=== PATIENT | male | born 1960 | race Hispanic/Latino ===

== ENCOUNTER 2017-05-15 10:04 | Emergency (ER) | payer MEDICAID ==
[2017-05-15 10:10] VITALS: BMI 31.4
[2017-05-15] MEDS ORDERED: Sodium Chloride 0.9% 1,000 ML IV STA (10:12)
--- NOTE | 2017-05-15 10:22 | ED PDOC ---
Arrival/HPI - General Time Seen by Provider: 05/15/17 10:05 Historian: Patient, EMS - History of Present Illness Narrative History of Present Illness (Text): 05/15/17 10:13 56 y/o male, pmh including htn/cad/seizure? with stents, psychiatric history including anxiety/depression/drug abuse with the percocet and xanax with alcohol abuse, nkda, FS 151, GCS 15, bib [facility] ambulance which he was found on the ground outside the gas station in the [place] prior to the ambulance arrival about 45 minutes ago. Pt. was found by the bystanders which they noticed him on the ground and the ambulance was call, EMS found the patient has pinpoint pupils, gave 2 doses of the narcan as nasal spray with no relief but then gave additional 3 IV narcan which the patient responded, found confused initially and now at the baseline with aox3. Pt. stated that he doesn't remember what happened and why he is here at the ER. Pt. stated that he feels perfectly. Pt. has no chest pain or palpitation, no night sweat, no rash, no numbness or tingling, no night sweat, no other medical or psychological complaints. Pt. has no homicidal or suicidal ideation, no auditory or visual hallucination. Past Medical History - Provider Review Nursing Documentation Reviewed: Yes - Cardiac Hx Hypertension: Yes - Pulmonary Hx Tuberculosis: No - Neurological Hx Seizures: No - HEENT Hx HEENT Disorder: No - Renal Hx Renal Disorder: No - Endocrine/Metabolic Hx Endocrine Disorders: No - Hematological/Oncological Hx Cancer: No - Integumentary Hx Dermatological Disorder: No - Musculoskeletal/Rheumatological Hx Falls: No - Gastrointestinal Hx Gastrointestinal Disorders: No - Genitourinary/Gynecological Hx Sexually Transmitted Diseases: No - Psychiatric Hx Depression: Yes Hx Substance Use: Yes (oxycodone, percocet, xanax) - Surgical History Hx Coronary Stent: Yes - Anesthesia Hx Anesthesia: Yes Hx Anesthesia Reactions: No Hx Malignant Hyperthermia: No Family/Social History - Physician Review Nursing Documentation Reviewed: Yes Family/Social History: Unknown Family HX Smoking Status: Light Smoker < 10 Cigarettes Daily Hx Alcohol Use: Yes (beer) Hx Substance Use: Yes (oxycodone, percocet, xanax) Allergies/Home Meds Allergies/Adverse Reactions: Allergies No Known Allergies Allergy (Verified 10/23/15 14:43) Review of Systems - Review of Systems Constitutional: absent: Fatigue, Weight Change Eyes: absent: Vision Changes ENT: absent: Hearing Changes Respiratory: absent: SOB, Cough, Sputum Cardiovascular: absent: Chest Pain Gastrointestinal: absent: Abdominal Pain, Nausea, Vomiting Musculoskeletal: absent: Arthralgias, Back Pain Skin: absent: Rash, Pruritis Neurological: absent: Headache, Dizziness, Focal Weakness, Gait Changes, Speech Changes, Facial Droop, Disequilibrium Physical Exam Vital Signs Reviewed: Yes Vital Signs Temp Pulse Resp BP Pulse Ox 05/15/17 12:38 67 18 155/84 H 97 05/15/17 10:04 97.9 F 76 18 148/85 97 Temperature: Afebrile Blood Pressure: Normal Pulse: Regular Respiratory Rate: Normal Appearance: Positive for: Well-Appearing, Non-Toxic, Comfortable Pain Distress: None Mental Status: Positive for: Alert and Oriented X 3 Finger Stick Blood Glucose: 151 - Systems Exam Head: Present: Atraumatic, Normocephalic. No: Tenderness, Contusion, Swelling, Ecchymosis, Abrasion, Laceration, Other Pupils: Present: PERRL Extroacular Muscles: Present: EOMI. No: Gaze Palsy, Entrapment Conjunctiva: Present: Normal Mouth: Present: Moist Mucous Membranes Neck: Present: Normal Range of Motion, Trachea Midline. No: Meningeal Signs, MIDLINE TENDERNESS, Paraspinal Tenderness, Lymphadenopathy Respiratory/Chest: Present: Clear to Auscultation, Good Air Exchange. No: Respiratory Distress, Accessory Muscle Use, Wheezes, Decreased Breath Sounds, Rales, Retracting, Rhonchi, Tachypneic Cardiovascular: Present: Regular Rate and Rhythm, Normal S1, S2, Peripheal Pulses Present. No: Murmurs, Tachycardic Abdomen: Present: Normal Bowel Sounds. No: Tenderness, Distention, Peritoneal Signs, Rebound, Guarding Back: Present: Normal Inspection Upper Extremity: Present: Normal Inspection, Normal ROM, NORMAL PULSES, Capillary Refill < 2s. No: Cyanosis, Edema, Swelling, Deformity Lower Extremity: Present: Normal Inspection, NORMAL PULSES, Normal ROM, Capillary Refill < 2 s. No: Edema, Tenderness, Swelling, Deformity Neurological: Present: GCS=15, CN II-XII Intact, Speech Normal, Motor Func Grossly Intact, Gait Normal, Memory Normal Skin: Present: Warm, Dry, Normal Color. No: Rashes Psychiatric: Present: Alert, Oriented x 3, Normal Insight, Normal Concentration Medical Decision Making ED Course and Treatment: 05/15/17 10:24 -labs/ua/uds/alcohol/magnesium level -CT head -CXR -EKG -Pelletising Extruder Operator -IVF -Observe and reassess 05/15/17 12:52 -Pt. is currently fully alert and oriented x 3, no focal neurological deficits, walking with normal gait and posture. -EKG: ESR @ 82 BPM, no ST elevation or depression, no T wave inversion -CT Head: no acute findings -Chest xray: rt. lower lobe pneumonia which the patient admits coughing x 3 days with elevation of wbc. IV rocephine and azithromycin ordered. Based on the curb 65, pt. has low risk and stable for the outpatient follow up. -Labs: no acute finding except and wbc 12.4 -Alcohol level within normal limit -UA show no UTI -UDS show +cocaine/benzo/opiod -Pt. is non-toxic -I explained to the patient that he should avoid all gym/exercises while taking this levaquin medication as it can produces achilles tendon rupture and he agreed to accept the risk and stop the gym/exercise -Discharge home with levaquin, promethazine dm, stay hydrated, bed rest, avoid all gym/exercises while taking this levaquin medication as it can produces achilles tendon rupture follow up with your own pmd within 2 days, avoid intoxicated and drug abuse, return to the ER for any new or worsening signs or symptoms. - Lab Interpretations Lab Results: 05/15/17 10:15 05/15/17 10:15 Lab Results 05/15/17 12:10: Urine Opiates Screen Positive H, Urine Methadone Screen Negative , Ur Barbiturates Screen Negative, Ur Phencyclidine Scrn Negative, Ur Amphetamines Screen Negative, U Benzodiazepines Scrn Positive H, U Oth Cocaine Metabols Positive H, U Cannabinoids Screen Negative 05/15/17 12:10: Urine Color Yellow, Urine Appearance Clear, Urine pH 6.0, Ur Specific [place] >= 1.030, Urine Protein Trace H, Urine Glucose (UA) Negative, Urine Ketones Negative, Urine Blood Small H, Urine Nitrate Negative, Urine Bilirubin Negative, Urine Urobilinogen 0.2, Ur Leukocyte Esterase Negative, Urine RBC 5 - 10, Urine WBC 0 - 2, Ur Epithelial Cells None, Urine Bacteria Few 05/15/17 10:15: Alcohol, Quantitative < 10 05/15/17 10:15: Sodium 140, Potassium 4.3, Chloride 100, Carbon Dioxide 30, Anion Gap 14, BUN 16, Creatinine 1.2, Est GFR ( Amer) > 60, Est GFR (Non- Af Amer) > 60, Random Glucose 186 H, Calcium 8.9, Magnesium 1.9, Total Bilirubin 0.6, AST 44, ALT 79 H, Alkaline Phosphatase 75, Total Creatine Kinase 111, Total Protein 7.7, Albumin 4.4, Globulin 3.3, Albumin/Globulin Ratio 1.3 05/15/17 10:15: WBC 12.4 H D, RBC 4.88, Hgb 15.5, Hct 46.7, MCV 95.7, MCH 31.8, MCHC 33.2, RDW 13.9, Plt Count 215, MPV 11.2 H, Gran % 73.0 H, Lymph % (Auto) 18.0 L, Pe[place] % (Auto) 6.3 H, Eos % (Auto) 2.2, Baso % (Auto) 0.5, Gran # 9.08 H , Lymph # 2.2, Peach # 0.8 H, Eos # 0.3, Baso # 0.06 I have reviewed the lab results: Yes Interpretation: Abnormal lab values (UDS show +cocaine/benzo/opiod and wbc 12.4) - RAD Interpretation Radiology Orders: 05/15/17 10:12 HEAD W/O CONTRAST [CT] Stat CHEST PORTABLE [RAD] Stat CT HEAD WITHOUT CONTRAST. HISTORY: found unconscious on the ground COMPARISON: None available. TECHNIQUE: Axial computed tomography images were obtained through the head/brain without intravenous contrast. Radiation dose: Total exam DLP = 858.87 mGy-cm. This CT exam was performed using one or more of the following dose reduction techniques: Automated exposure control, adjustment of the mA and/or kV according to patient size, and/or use of iterative reconstruction technique. FINDINGS: HEMORRHAGE: No intracranial hemorrhage. BRAIN: No mass effect or edema. No atrophy or chronic microvascular ischemic changes. VENTRICLES: Unremarkable. No hydrocephalus. CALVARIUM: Unremarkable. PARANASAL SINUSES: Unremarkable as visualized. No significant inflammatory changes. MASTOID AIR CELLS: Unremarkable as visualized. No inflammatory changes. OTHER FINDINGS: None. IMPRESSION: No evidence of acute intracranial hemorrhage territorial infarct mass effect or midline shift. Chest x-ray: HISTORY: medical clearance COMPARISON: No prior. FINDINGS: LUNGS: Heterogeneous opacity at the right lower lobe may represent atelectasis or less likely pneumonia. . PLEURA: No significant pleural effusion identified, no pneumothorax apparent. CARDIOVASCULAR: Normal. OSSEOUS STRUCTURES: No significant abnormalities. VISUALIZED UPPER ABDOMEN: Normal. OTHER FINDINGS: None. IMPRESSION: Heterogeneous opacity at the right lower lobe may represent atelectasis or less likely pneumonia. Otherwise no evidence of acute pathology. Quantitative Analyst Developer: Radiologist - EKG Interpretation EKG Interpretation (Text): 05/15/17 11:20 -EKG: NSR @ 82 BPM, no ST elevation or depression, no T wave inversion Interpreted by ED Physician: Yes Type: 12 lead EKG - Medication Orders Current Medication Orders: Azithromycin (Zithromax 500mg In Ns) 500 mg in 250 mls @ 167 mls/hr IVPB STAT STA PRN Reason: Protocol Stop: 05/15/17 13:35 Discontinued Medications Sodium Chloride (Sodium Chloride 0.9%) 1,000 mls @ 999 mls/hr IV .Q1H1M STA Stop: 05/15/17 11:12 Last Admin: 05/15/17 10:38 Dose: 999 mls/hr eMAR Start Stop Document 05/15/17 10:38 DUYO (Rec: 05/15/17 10:38 EWO [id number]) Intravenous Solution Start Date 05/15/17 Start Time 10:38 End Date 05/15/17 End time 11:38 Total Infusion Time 60 Ceftriaxone Sodium (Rocephin 1 Gram Ivpb) 1 gm in 100 mls @ 200 mls/hr IVPB STAT STA PRN Reason: Protocol Stop: 05/15/17 12:35 Last Admin: 05/15/17 12:19 Dose: 200 mls/hr eMAR Start Stop Document 05/15/17 12:19 CNR (Rec: 05/15/17 12:19 CNR [id number]) Intravenous Solution Start Date 05/15/17 Start Time 12:19 - PA / FLANGING MACHINE OPERATOR / Resident Statement MD/ has reviewed & agrees with the documentation as recorded. Disposition/Present on Arrival - Present on Arrival Any Indicators Present on Arrival: No History of DVT/PE: No History of Uncontrolled Diabetes: No Urinary Catheter: No History of Decub. Ulcer: No History Surgical Site Infection Following: None - Disposition Have Diagnosis and Disposition been Completed?: Yes Diagnosis: Pneumonia, Drug abuse Disposition: HOME/ ROUTINE Disposition Time: 12:57 Patient Plan: Discharge Patient Problems: Current Active Problems Problem Status Onset Pneumonia Acute Condition: IMPROVED Additional Instructions: -Discharge home with levaquin, promethazine dm, stay hydrated, bed rest, avoid all gym/exercises while taking this levaquin medication as it can produces achilles tendon rupture follow up with your own pmd within 2 days, avoid intoxicated and drug abuse, return to the ER for any new or worsening signs or symptoms. Prescriptions: Levofloxacin [Levaquin] 750 mg PO DAILY #5 tablet Promethazine DM [Phenergan DM Syrup] 5 ml PO QID PRN #250 ml PRN Reason: Other Referrals: Julio CONDON,Yazan Rousseau MD [Primary Care Provider] - Follow up with primary [facility] [Outside] - Follow up with primary Forms: WORK NOTE
[2017-05-15 10:31] LABS: BASO # 0.06 K/mm3 (0.0-2.0); BASO % 0.5 % (0.0-3.0); EOS # 0.3 (0.0-0.7); EOS % 2.2 % (1.5-5.0); GRAN # 9.08 (1.4-6.5); HEMATOCRIT 46.7 % (42.0-52.0); LYMPH # 2.2 (1.2-3.4); MEAN CELL VOLUME 95.7 fl (80.0-105.0); MEAN CORPUSCULAR HEMOGLOBIN 31.8 pg (25.0-35.0); MEAN CORPUSCULAR HGB CONC 33.2 g/dl (31.0-37.0); MEAN PLATELET VOLUME 11.2 fl (7.0-11.0); MONO # 0.8 (0.1-0.6); MONO % 6.3 % (1.0-6.0); RED CELL DISTRIBUTION WIDTH 13.9 % (11.5-14.5); WHITE BLOOD COUNT 12.4 10^3/ul (4.5-11.0)
[2017-05-15 10:32] VITALS: TEMP 97.9
[2017-05-15 10:42] LABS: ALB/GLOB RATIO 1.3 (1.1-1.8); ALKALINE PHOSPHATASE 75 U/L (38-126); ALT/SGPT 79 U/L (7-56); AST/SGOT 44 U/L (17-59); BILIRUBIN,TOTAL 0.6 mg/dL (0.2-1.3); BLOOD UREA NITROGEN 16 mg/dL (7-21); CALCIUM 8.9 mg/dL (8.4-10.5); CARBON DIOXIDE 30 mmol/L (21-33); CHLORIDE 100 mmol/L (98-107); GFR AFRICAN-AMERICAN > 60; GLUCOSE,RANDOM 186 mg/dL (70-110); MAGNESIUM 1.9 mg/dL (1.7-2.2); POTASSIUM 4.3 mmol/L (3.6-5.0); SODIUM 140 mmol/L (132-148); TOTAL PROTEIN 7.7 g/dL (5.8-8.3)
--- NOTE | 2017-05-15 11:08 | CT ---
PROCEDURE: CT HEAD WITHOUT CONTRAST. HISTORY: found unconscious on the ground COMPARISON: None available. TECHNIQUE: Axial computed tomography images were obtained through the head/brain without intravenous contrast. Radiation dose: Total exam DLP = 858.87 mGy-cm. This CT exam was performed using one or more of the following dose reduction techniques: Automated exposure control, adjustment of the mA and/or kV according to patient size, and/or use of iterative reconstruction technique. FINDINGS: HEMORRHAGE: No intracranial hemorrhage. BRAIN: No mass effect or edema. No atrophy or chronic microvascular ischemic changes. VENTRICLES: Unremarkable. No hydrocephalus. CALVARIUM: Unremarkable. PARANASAL SINUSES: Unremarkable as visualized. No significant inflammatory changes. MASTOID AIR CELLS: Unremarkable as visualized. No inflammatory changes. OTHER FINDINGS: None. IMPRESSION: No evidence of acute intracranial hemorrhage territorial infarct mass effect or midline shift.
--- NOTE | 2017-05-15 11:27 | RAD ---
HISTORY: medical clearance COMPARISON: No prior. FINDINGS: LUNGS: Heterogeneous opacity at the right lower lobe may represent atelectasis or less likely pneumonia. . PLEURA: No significant pleural effusion identified, no pneumothorax apparent. CARDIOVASCULAR: Normal. OSSEOUS STRUCTURES: No significant abnormalities. VISUALIZED UPPER ABDOMEN: Normal. OTHER FINDINGS: None. IMPRESSION: Heterogeneous opacity at the right lower lobe may represent atelectasis or less likely pneumonia. Otherwise no evidence of acute pathology.
--- NOTE | 2017-05-15 12:00 | CARD ---
APPROVED REPORT EKG Measurement Heart [id number] <Conclusion> Normal sinus rhythm Normal ECG
[2017-05-15] MEDS ORDERED: Azithromycin 500MG/NS 250ml 500 MG/250 ML BAG IVPB STA (12:06)
[2017-05-15] MEDS ORDERED: cefTRIAXone 1 gm 1 GM/100 ML BAG IVPB STA (12:06)
[2017-05-15 12:29] LABS: URINE BILIRUBIN NEGATIVE (NEGATIVE); URINE BLOOD SMALL (NEGATIVE); URINE GLUCOSE (UA) NEGATIVE (NEGATIVE); URINE KETONE NEGATIVE (NEGATIVE); URINE LEUKOCYTE ESTERASE NEGATIVE Leu/uL (NEGATIVE); URINE PROTEIN TRACE mg/dL (<30 mg/dL); URINE UROBILINOGEN 0.2 E.U./dL (<1 E.U./dL)
[2017-05-15 12:31] LABS: URINE APPEARANCE CLEAR (CLEAR); URINE COLOR YELLOW (YELLOW)
[2017-05-15 12:34] LABS: URINE BACTERIA FEW (NEG); URINE WBC 0 - 2 /hpf (0-6)
[2017-05-15 12:39] VITALS: PULSE 67
[2017-05-15 14:26] VITALS: BP 158/97; RESP 17; O2SAT 100
== END 2017-05-15 15:40 | disposition home or self-care (01) ==
LOC: ED 10:04
DX: J18.9 Pneumonia, unspecified organism (principal); F19.10 Other psychoactive substance abuse, uncomplicated; F17.210 Nicotine dependence, cigarettes, uncomplicated; I10 Essential (primary) hypertension
CPT/HCPCS: 70450; 71010; 80053; 80320; 80324; 80345; 80346; 80349; 80353; 80358; 80361; 81001; 82550; 83735; 83992; 85025; 93005; 96361; 96365; 96375; 99285; J0456; J0696; J7040

== ENCOUNTER 2017-05-22 05:43 | Emergency (ER) | payer MEDICAID ==
[2017-05-22 05:44] VITALS: BMI 31.4
--- NOTE | 2017-05-22 07:22 | ED PDOC ---
Arrival/HPI - General Chief Complaint: Substance Abuse Time Seen by Provider: 05/22/17 06:15 Historian: Patient - History of Present Illness Narrative History of Present Illness (Text): 05/22/17 07:19 Patient was brought in for opioid overdose he was snorting heroin earlier this evening EMS was called for lack of responsiveness rest for distress he was given 2 doses of Narcan with good response he arrived to the emergency department alert and oriented. Recently he completed a course of antibiotics for pneumonia. Endorse a cough but no other has been stressed this time has no complaints. Time/Duration: Prior to Arrival Symptom Course: Improving Past Medical History - Provider Review Nursing Documentation Reviewed: Yes - Travel History Have you recently traveled outside [place] w/in the past 3 mons?: No - Cardiac Hx Cardiac Disorders: Yes Hx Hypertension: Yes - Pulmonary Hx Respiratory Disorders: No Hx Tuberculosis: No - Neurological Hx Neurological Disorder: No Hx Seizures: No - HEENT Hx HEENT Disorder: No - Renal Hx Renal Disorder: No - Endocrine/Metabolic Hx Endocrine Disorders: No - Hematological/Oncological Hx Blood Disorders: No Hx Cancer: No - Integumentary Hx Dermatological Disorder: No - Musculoskeletal/Rheumatological Hx Musculoskeletal Disorders: No Hx Falls: No - Gastrointestinal Hx Gastrointestinal Disorders: No - Genitourinary/Gynecological Hx Genitourinary Disorders: No Hx Sexually Transmitted Diseases: No - Psychiatric Hx Psychophysiologic Disorder: No Hx Depression: Yes Hx Substance Use: Yes (oxycodone, percocet, xanax) - Surgical History Hx Coronary Stent: Yes - Anesthesia Hx Anesthesia: Yes Hx Anesthesia Reactions: No Hx Malignant Hyperthermia: No Family/Social History - Physician Review Nursing Documentation Reviewed: Yes Family/Social History: No Known Family HX Smoking Status: Light Smoker < 10 Cigarettes Daily Hx Alcohol Use: Yes (beer) Hx Substance Use: Yes (oxycodone, percocet, xanax) Substance used: heroin, cocain Allergies/Home Meds Allergies/Adverse Reactions: Allergies No Known Allergies Allergy (Verified 05/22/17 06:14) Home Medications: Home Meds Medication Instructions Recorded Confirmed Bisoprolol/HCTZ [Ziac 5 MG-6.25 MG] 1 tab PO DAILY 05/22/17 05/22/17 Review of Systems - Patients Enrolled in [employer] [X]: A conversation was conducted with the primary medical doctor. - Review of Systems Constitutional: Normal Eyes: Normal ENT: Normal Respiratory: Normal Cardiovascular: Normal Skin: Normal Physical Exam Vital Signs Temp Pulse Resp BP Pulse Ox 05/22/17 09:39 98 F 71 20 134/72 99 05/22/17 08:59 77 17 136/91 H 96 05/22/17 08:02 98 F 86 20 136/91 H 96 05/22/17 05:55 97.9 F 90 18 170/107 H 99 Blood Pressure: Hypertensive Pulse: Regular Appearance: Positive for: Well-Appearing Mental Status: Positive for: Alert and Oriented X 3 - Systems Exam Head: Present: Atraumatic Pupils: Present: PERRL Extroacular Muscles: Present: EOMI Conjunctiva: Present: Normal Mouth: Present: Moist Mucous Membranes Neck: Present: Normal Range of Motion Respiratory/Chest: Present: Clear to Auscultation, Good Air Exchange. No: Respiratory Distress Cardiovascular: Present: Regular Rate and Rhythm, Murmurs Neurological: Present: GCS=15, Motor Func Grossly Intact Skin: Present: Warm, Dry Psychiatric: Present: Alert, Oriented x 3 Medical Decision Making ED Course and Treatment: 05/22/17 07:21 Patient has no Complaints he is oriented recovering from. Overdose she'll be observed for clinical sobriety this is not an overdose suicide attempt this is an accidental recreational overdose. Reassessment Condition: Re-examined, Improved Disposition/Present on Arrival - Present on Arrival Any Indicators Present on Arrival: No History of DVT/PE: No History of Uncontrolled Diabetes: No Urinary Catheter: No History of Decub. Ulcer: No History Surgical Site Infection Following: None - Disposition Have Diagnosis and Disposition been Completed?: Yes Diagnosis: Opioid overdose Disposition: HOME/ ROUTINE Disposition Time: 08:30 Patient Plan: Discharge Condition: IMPROVED Discharge Instructions (ExitCare): Opioid Overdose (ED) Forms: [employer] (Persian)
[2017-05-22 08:03] VITALS: TEMP 98
--- NOTE | 2017-05-22 08:57 | ED PDOC ---
Physical Exam Vital Signs Reviewed: Yes Vital Signs Temp Pulse Resp BP Pulse Ox 05/22/17 09:39 98 F 71 20 134/72 99 05/22/17 08:59 77 17 136/91 H 96 05/22/17 08:02 98 F 86 20 136/91 H 96 05/22/17 05:55 97.9 F 90 18 170/107 H 99 Temperature: Afebrile Blood Pressure: Hypertensive Pulse: Regular Respiratory Rate: Normal Appearance: Positive for: Well-Appearing, Non-Toxic, Comfortable Pain Distress: None Mental Status: Positive for: Alert and Oriented X 3 Medical Decision Making ED Course and Treatment: 05/22/17 07:56: Patient endorsed to me by Dr. Dooley. Pending sobriety. Will reassess and disposition. 05/22/17 09:47 pt now sober, w/ stable resp rate and o2sat , ambulating w/out gait abnormality , denying any si/hi/ah/vh and refusing detox. - Scribe Statement The provider has reviewed the documentation as recorded by the Scribe Deyanira Andres Provider Scribe Attestation: All medical record entries made by the Scribe were at my direction and personally dictated by me. I have reviewed the chart and agree that the record accurately reflects my personal performance of the history, physical exam, medical decision making, and the department course for this patient. I have also personally directed, reviewed, and agree with the discharge instructions and disposition. Disposition/Present on Arrival - Present on Arrival Any Indicators Present on Arrival: No History of DVT/PE: No History of Uncontrolled Diabetes: No Urinary Catheter: No History of Decub. Ulcer: No History Surgical Site Infection Following: None - Disposition Have Diagnosis and Disposition been Completed?: Yes Diagnosis: Opioid overdose Disposition: HOME/ ROUTINE Disposition Time: 09:48 Patient Plan: Discharge Patient Problems: Current Active Problems Problem Status Onset Opioid overdose Acute Condition: IMPROVED Discharge Instructions (ExitCare): Opioid Overdose (ED) Forms: [employer] (Kiswahili)
[2017-05-22 09:40] VITALS: BP 134/72; PULSE 71; RESP 20; O2SAT 99
--- NOTE | 2017-05-22 23:17 | CARD ---
APPROVED REPORT EKG Measurement Heart [id number] RI 156P62 [id number] <Conclusion> Sinus rhythm with occasional premature ventricular complexes Otherwise normal ECG
== END 2017-05-22 09:55 | disposition home or self-care (01) ==
LOC: ED 05:43
DX: T40.2X4A Poisoning by other opioids, undetermined, initial encounter (principal); Y92.89 Other specified places as the place of occurrence of the external cause